=== PATIENT | female | born 1960 ===

== ENCOUNTER 2016-09-15 13:59 | Emergency (ER) | payer SELFPAY ==
[2016-09-15 14:15] VITALS: TEMP 97.9
--- NOTE | 2016-09-15 15:16 | C.PDOC ---
History Of Present Illness Pt c/o right upper extremity pain. Denies injury. Time Seen by Provider: 09/15/16 14:30 Chief Complaint (Nursing): Upper Extremity Problem/Injury History Per: Patient, Family Onset/Duration Of Symptoms: Days (about 1 month), Waxing/Waning Current Symptoms Are (Timing): Still Present Quality: "Pain" Severity: Moderate Torso/Front (Pic): 1 - pain Exacerbating Factor(s): Strenuous Use Of Affected Area, Movement Additional History Per: Prior Records Past Medical History Reviewed: Historical Data, Nursing Documentation, Vital Signs Vital Signs: Last Vital Signs Temp 97.9 F 09/15/16 14:10 Pulse 68 09/15/16 14:10 Resp 18 09/15/16 14:10 BP 147/84 09/15/16 14:10 Pulse Ox 98 09/15/16 15:21 - Medical History PMH: HTN Family History: States: Unknown Family Hx - Social History Hx Tobacco Use: No Hx Alcohol Use: No Hx Substance Use: No - Immunization History Hx Tetanus Toxoid Vaccination: No Hx Influenza Vaccination: No Hx Pneumococcal Vaccination: No Review Of Systems Except As Marked, All Systems Reviewed And Found Negative. Constitutional: Negative for: Fever, Weakness Respiratory: Negative for: Shortness of Breath, Hemoptysis Gastrointestinal: Negative for: Vomiting, Abdominal Pain, Diarrhea Musculoskeletal: Positive for: Shoulder Pain (right), Arm Pain (right), Hand Pain (right). Negative for: Neck Pain, Back Pain Skin: Negative for: Rash Neurological: Negative for: Weakness, Numbness, Seizures, Altered Mental Status Physical Exam - Physical Exam Appears: Non-toxic, No Acute Distress Skin: Normal Color, Warm, Dry, No Rash Head: Atraumatic, Normacephalic Eye(s): bilateral: PERRL, EOMI Neck: Normal ROM, No Midline Cervical Tenderness, No Step Off Deformity, Supple Chest: Symmetrical, No Deformity Cardiovascular: Rhythm Regular Respiratory: Normal Breath Sounds, No Accessory Muscle Use Gastrointestinal/Abdominal: Soft, No Tenderness Back: Normal Inspection, No CVA Tenderness, No Vertebral Tenderness Extremity: Normal ROM, Tenderness (nonspecific RUE), Capillary Refill (wnl), No Deformity, No Swelling Extremity: Bilateral: Normal Color And Temperature Pulses: Right Radial: Normal Neurological/Psych: Oriented x3, Normal Motor, Normal Sensation ED Course And Treatment O2 Sat by Pulse Oximetry: 98 Pulse Ox Interpretation: Normal - Radiology CXR: Viewed By Me, Read By Radiologist CXR Interpretation: Yes: No Acute Disease Reassessment Condition: Improved Disposition Counseled Patient/Family Regarding: Studies Performed, Diagnosis, Need For Followup, Rx Given - Disposition Referrals: Chris Call MD [Staff Provider] - Disposition: HOME/ ROUTINE Disposition Time: 16:13 Condition: STABLE Additional Instructions: Follow up with your doctor for further evaluation and treatment. Return to the ER if you develop weakness, numbness, shortness of breath, redness, swelling, worsening of symptoms or if you have any other concerns. Prescriptions: traMADol/Acetaminophen [Ultracet 325 MG-37.5 MG] 1 tab PO Q4 PRN #30 tab PRN Reason: Pain Instructions: Musculoskeletal Pain (ED) - Clinical Impression Clinical Impression: Right upper limb pain
--- NOTE | 2016-09-15 16:03 | RAD ---
HISTORY: Right sided pain COMPARISON: No prior. TECHNIQUE: Chest PA and lateral FINDINGS: LUNGS: Poor inspiration with low lung volumes crowded bronchovascular markings and mild bibasilar atelectasis. PLEURA: No significant pleural effusion identified. No pneumothorax apparent. CARDIOVASCULAR: Normal. OSSEOUS STRUCTURES: No significant abnormalities. VISUALIZED UPPER ABDOMEN: Normal. OTHER FINDINGS: None. IMPRESSION: Poor inspiration with low lung volumes crowded bronchovascular markings and mild bibasilar atelectasis.
[2016-09-15 16:32] VITALS: BP 136/76; PULSE 61; RESP 17; O2SAT 100
== END 2016-09-15 17:09 | disposition home or self-care (01) ==
LOC: C.ER 13:59
DX: M79.621 Pain in right upper arm (principal)